=== PATIENT | male | born 1975 | race Hispanic/Latino ===

== ENCOUNTER 2017-04-25 16:01 | Emergency (ER) | payer OTHER ==
[~2017-04-25 16:01] MED LIST: ABAC1TAB15 PO; ESOM40CA54 PO; FENO145T37 PO; FENT25PAT TD; FLUO40CA7 PO; FURO20TA4 PO; INSLAN SQ; LORA1TAB3 PO; METO-408 PO; MORP10SO3 PO; PREG150C PO; PROM25TA7 PO; ROSU20TA PO; TEMA30CA PO; VALS320T15 PO; [UNRECOGNIZED DRUG - CODE] PO
[2017-04-25] MEDS ORDERED: ACETAMINOPHEN EXTRA STRENGTH 500 MG TABLET ONE (16:30)
== END 2017-04-25 17:43 | disposition home or self-care (01) ==
LOC: EDH 16:01
DX: S16.1XXA Strain of muscle, fascia and tendon at neck level, initial encounter (principal); E11.40 Type 2 diabetes mellitus with diabetic neuropathy, unspecified; E78.5 Hyperlipidemia, unspecified; Z91.018 Allergy to other foods; Z88.8 Allergy status to other drugs, medicaments and biological substances; Z21 Asymptomatic human immunodeficiency virus [HIV] infection status; Z72.0 Tobacco use; W01.0XXA Fall on same level from slipping, tripping and stumbling without subsequent striking against object, initial encounter; Y93.89 Activity, other specified; Y92.89 Other specified places as the place of occurrence of the external cause; Y99.8 Other external cause status
CPT/HCPCS: 72040

== ENCOUNTER 2017-05-02 20:31 | Emergency (ER) | payer OTHER ==
[2017-05-02] MEDS ORDERED: ASPIRIN 325 MG TABLET ONE (21:13)
[2017-05-02 21:21] LABS: BASOPHILS % (AUTO) 0.4 % (0.0-5.0); EOSINOPHILS % (AUTO) 0.3 % (0.0-8.0); LYMPHOCYTES % (AUTO) 22.7 % (21.0-51.0); MEAN CORPUSCULAR HGB CONC 33.9 g/dL (32.0-36.0); MEAN CORPUSCULAR VOLUME 79.7 fL (79-99); MONOCYTES % (AUTO) 8.4 % (3.0-13.0); NEUTROPHILS % (AUTO) 68.2 % (40.0-77.0); PLATELET COUNT (AUTO) 383 K/uL (130-400); RED BLOOD CELL COUNT(AUTO) 3.89 MIL/uL (4.50-6.20); RED CELL DISTRIBUTION WIDTH 13.9 % (11.0-15.5); WHITE BLOOD COUNT (AUTO) 7.6 K/uL (4.8-10.8)
[2017-05-02 21:32] LABS: INR 1.01 (0.85-1.15); PARTIAL THROMBOPLASTIN TIME 26.1 SEC (26.3-35.5); PROTHROMBIN TIME 10.6 SEC (9.6-11.6)
[2017-05-02 21:33] LABS: CREATININE 1.2 mg/dL (0.5-1.5)
[2017-05-02 21:46] LABS: B-TYPE NATRIURETIC PEPTIDE 9 pg/mL (0-100)
[2017-05-02 21:50] LABS: APPEARANCE,URINE Clear (CLEAR); BILIRUBIN,URINE Negative (NEGATIVE); COLOR,URINE Yellow (YELLOW); GLUCOSE, URINE (UA) >=1000 mg/dL (NEGATIVE); KETONES,URINE Negative (NEGATIVE); LEUKOCYTE ESTERASE ,URINE Negative (NEGATIVE); NITRATE,URINE Negative (NEGATIVE); OCCULT BLOOD,URINE Negative (NEGATIVE); PROTEIN,URINE Negative (NEGATIVE); UROBILINOGEN,URINE 0.2 mg/dL (0.2-1.0)
[2017-05-02 21:55] LABS: ALBUMIN 3.8 g/dL (3.5-5.0); BILIRUBIN,TOTAL 0.3 mg/dL (0.2-1.0); TOTAL PROTEIN, SERUM 7.8 g/dL (6.0-8.3)
[2017-05-02 21:57] LABS: AMPHET/METH SCREEN,URINE NEGATIVE (NEGATIVE); BARBITURATE SCREEN, URINE NEGATIVE (NEGATIVE); BENZODIAZEPINES SCREEN,URINE NEGATIVE (NEGATIVE); CANNABINOID SCREEN,URINE NEGATIVE (NEGATIVE); COCAINE SCREEN,URINE NEGATIVE (NEGATIVE); OPIATE SCREEN,URINE NEGATIVE (NEGATIVE); PHENCYCLIDINE SCREEN,URINE NEGATIVE (NEGATIVE)
[2017-05-02 22:04] LABS: BACTERIA,URINE Rare /HPF (None Seen); RBC,URINE 0-1 /HPF (0-1); SQUAMOUS EPITHELIAL CELL,UR Rare /HPF (0-2); WBC,URINE 0-1 /HPF (0-1)
[2017-05-02 22:19] LABS: CREATINE KINASE MB 2.7 ng/mL (0.5-3.6)
[2017-05-03] MEDS ORDERED: PREGABALIN 75 MG CAPSULE ONE (00:20)
[2017-05-03] MEDS ORDERED: PREGABALIN 100 MG CAPSULE ONE (00:21)
== END 2017-05-03 00:55 | disposition home or self-care (01) ==
LOC: EDH 20:31
DX: R07.89 Other chest pain (principal); E10.40 Type 1 diabetes mellitus with diabetic neuropathy, unspecified; I10 Essential (primary) hypertension; E78.5 Hyperlipidemia, unspecified; Z88.8 Allergy status to other drugs, medicaments and biological substances; Z88.1 Allergy status to other antibiotic agents; F20.9 Schizophrenia, unspecified; G89.29 Other chronic pain; Z21 Asymptomatic human immunodeficiency virus [HIV] infection status; Z79.4 Long term (current) use of insulin
CPT/HCPCS: 36415; 71045; 80053; 80305; 81001; 82550; 82553; 83874; 83880; 84484; 85025; 85610; 85730; 93005; 94761

== ENCOUNTER 2017-06-14 08:33 | Emergency (ER) | payer OTHER ==
[~2017-06-14 08:33] MED LIST changes: -VALS320T15 PO; +VALS320T16 PO
[2017-06-14] MEDS ORDERED: ACETAMINOPHEN-CODEINE 300/30MG TAB ONE (09:47)
[2017-06-14] MEDS ORDERED: KETOROLAC TROMETHAMINE 60 MG/2 ML VIAL ONE (09:47)
[2017-06-14 09:51] LABS: BILIRUBIN,TOTAL 0.4 mg/dL (0.2-1.0); POTASSIUM 4.4 mmol/L (3.5-5.1); TOTAL PROTEIN, SERUM 7.9 g/dL (6.0-8.3)
[2017-06-14 09:53] LABS: BASOPHILS % (AUTO) 0.4 % (0.0-5.0); EOSINOPHILS % (AUTO) 1.6 % (0.0-8.0); HEMATOCRIT 35.1 % (42-54); LYMPHOCYTES % (AUTO) 19.7 % (21.0-51.0); MEAN CORPUSCULAR HGB CONC 32.2 g/dL (32.0-36.0); MEAN CORPUSCULAR VOLUME 80.7 fL (79-99); NEUTROPHILS % (AUTO) 71.3 % (40.0-77.0); PLATELET COUNT (AUTO) 592 K/uL (130-400); RED BLOOD CELL COUNT(AUTO) 4.35 MIL/uL (4.50-6.20); RED CELL DISTRIBUTION WIDTH 17.2 % (11.0-15.5); WHITE BLOOD COUNT (AUTO) 7.8 K/uL (4.8-10.8)
== END 2017-06-14 10:51 | disposition home or self-care (01) ==
LOC: EDH 08:33
DX: M54.5 Low back pain (principal); G89.29 Other chronic pain; E11.9 Type 2 diabetes mellitus without complications; F31.9 Bipolar disorder, unspecified; E78.5 Hyperlipidemia, unspecified; I10 Essential (primary) hypertension; F20.9 Schizophrenia, unspecified; Z21 Asymptomatic human immunodeficiency virus [HIV] infection status; Z88.8 Allergy status to other drugs, medicaments and biological substances; Z72.0 Tobacco use
CPT/HCPCS: 36415; 80053; 85025; 96372; 99284; J1885

== ENCOUNTER 2018-01-21 14:38 | Emergency (ER) | payer OTHER ==
[~2018-01-21 14:38] MED LIST changes: +ALBU18HF7 IH; +ASPI-555 PO; +CLOP75TA32 PO; -ESOM40CA54 PO; -FENT25PAT TD; +FLUO40CA49 PO; -FLUO40CA7 PO; -FURO20TA4 PO; +GABA-531 PO; +INSU100I3 SQ; +IRON1CAP28 PO; +LEVE500T19 PO; -MORP10SO3 PO; +ONDA4TAB10 PO; -PREG150C PO; -PROM25TA7 PO; +TIZA2CAP9 PO; -VALS320T16 PO; -[UNRECOGNIZED DRUG - CODE] PO
[2018-01-21] MEDS ORDERED: ONDANSETRON ODT 4 MG TAB ONE (15:27)
[2018-01-21] MEDS ORDERED: MORPHINE SULFATE 8 MG/ML VIAL ONE (15:27)
== END 2018-01-21 16:53 | disposition home or self-care (01) ==
LOC: EDH 14:38
DX: E13.40 Other specified diabetes mellitus with diabetic neuropathy, unspecified (principal); E78.5 Hyperlipidemia, unspecified; I10 Essential (primary) hypertension; F20.9 Schizophrenia, unspecified; F31.9 Bipolar disorder, unspecified; G89.29 Other chronic pain; M54.9 Dorsalgia, unspecified; M54.2 Cervicalgia; Z88.8 Allergy status to other drugs, medicaments and biological substances; Z21 Asymptomatic human immunodeficiency virus [HIV] infection status; Z91.018 Allergy to other foods; Z98.890 Other specified postprocedural states; Z90.49 Acquired absence of other specified parts of digestive tract
CPT/HCPCS: 96372; 99283; J2270

== ENCOUNTER 2018-02-11 23:44 | Emergency (ER) | payer OTHER ==
[2018-02-12 01:25] LABS: BASOPHILS % (AUTO) 0.5 % (0.0-5.0); EOSINOPHILS % (AUTO) 1.5 % (0.0-8.0); HEMATOCRIT 40.6 % (42-54); LYMPHOCYTES % (AUTO) 17.4 % (21.0-51.0); MEAN CORPUSCULAR HEMOGLOBIN 29.5 pg (27.0-33.0); MEAN CORPUSCULAR HGB CONC 34.3 g/dL (32.0-36.0); MONOCYTES % (AUTO) 6.9 % (3.0-13.0); NEUTROPHILS % (AUTO) 73.7 % (40.0-77.0); PLATELET COUNT (AUTO) 347 K/uL (130-400); RED BLOOD CELL COUNT(AUTO) 4.73 MIL/uL (4.50-6.20); RED CELL DISTRIBUTION WIDTH 13.6 % (11.0-15.5); WHITE BLOOD COUNT (AUTO) 8.6 K/uL (4.8-10.8)
[2018-02-12 01:35] LABS: CREATININE 0.9 mg/dL (0.5-1.5)
[2018-02-12 01:40] LABS: ALBUMIN 3.6 g/dL (3.5-5.0); BILIRUBIN,DIRECT 0.1 mg/dL (0.0-0.3); BILIRUBIN,TOTAL 0.3 mg/dL (0.2-1.0); TOTAL PROTEIN, SERUM 7.4 g/dL (6.0-8.3)
[2018-02-12] MEDS ORDERED: FAMOTIDINE/PF 20 MG/2 ML VIAL IV ONE (02:27)
[2018-02-12] MEDS ORDERED: METOCLOPRAMIDE 10 MG/2 ML VIAL ONE (02:27)
[2018-02-12 02:35] LABS: APPEARANCE,URINE Clear (CLEAR); BILIRUBIN,URINE Negative (NEGATIVE); COLOR,URINE Yellow (YELLOW); GLUCOSE, URINE (UA) Negative (NEGATIVE); KETONES,URINE Negative (NEGATIVE); LEUKOCYTE ESTERASE ,URINE Negative (NEGATIVE); NITRATE,URINE Negative (NEGATIVE); OCCULT BLOOD,URINE Negative (NEGATIVE); PROTEIN,URINE Negative (NEGATIVE); UROBILINOGEN,URINE 0.2 mg/dL (0.2-1.0)
[2018-02-12] MEDS ORDERED: ONDANSETRON HCL 4 MG/2 ML VIAL ONE (02:39)
[2018-02-12] MEDS ORDERED: ONDANSETRON 4 MG TABLET ONE (02:41)
[2018-02-12] MEDS ORDERED: FAMOTIDINE 20MG TAB 20 MG TAB ONE (02:41)
[2018-02-12 02:45] LABS: AMPHET/METH SCREEN,URINE NEGATIVE (NEGATIVE); BARBITURATE SCREEN, URINE NEGATIVE (NEGATIVE); BENZODIAZEPINES SCREEN,URINE NEGATIVE (NEGATIVE); CANNABINOID SCREEN,URINE NEGATIVE (NEGATIVE); COCAINE SCREEN,URINE NEGATIVE (NEGATIVE); OPIATE SCREEN,URINE NEGATIVE (NEGATIVE); PHENCYCLIDINE SCREEN,URINE NEGATIVE (NEGATIVE)
== END 2018-02-12 04:34 | disposition home or self-care (01) ==
LOC: EDH 23:44
DX: K29.70 Gastritis, unspecified, without bleeding (principal); E11.65 Type 2 diabetes mellitus with hyperglycemia; G89.29 Other chronic pain; M54.9 Dorsalgia, unspecified; M54.2 Cervicalgia; E78.5 Hyperlipidemia, unspecified; E11.40 Type 2 diabetes mellitus with diabetic neuropathy, unspecified; I10 Essential (primary) hypertension; F20.9 Schizophrenia, unspecified; F31.9 Bipolar disorder, unspecified; Z88.8 Allergy status to other drugs, medicaments and biological substances; Z91.018 Allergy to other foods; Z90.49 Acquired absence of other specified parts of digestive tract; Z72.0 Tobacco use; Z21 Asymptomatic human immunodeficiency virus [HIV] infection status
CPT/HCPCS: 36415; 80048; 80076; 80305; 81003; 82550; 82948; 84484; 85025; 87804 ×2; 93005; 96372; 99284; J2405; J2765; J3490; Q0162

== ENCOUNTER 2018-02-13 14:43 | Emergency (ER) | payer OTHER ==
[2018-02-13] MEDS ORDERED: ONDANSETRON HCL 4 MG/2 ML VIAL ONE (15:05)
[2018-02-13] MEDS ORDERED: SODIUM CHLORIDE 0.9% 1000ML 1,000 ML IV ONE (15:06)
[2018-02-13 15:20] LABS: BASOPHILS % (AUTO) 0.7 % (0.0-5.0); EOSINOPHILS % (AUTO) 0.1 % (0.0-8.0); HEMATOCRIT 38.8 % (42-54); LYMPHOCYTES % (AUTO) 10.7 % (21.0-51.0); MEAN CORPUSCULAR HEMOGLOBIN 29.3 pg (27.0-33.0); MEAN CORPUSCULAR HGB CONC 34.3 g/dL (32.0-36.0); MEAN CORPUSCULAR VOLUME 85.5 fL (79-99); MONOCYTES % (AUTO) 5.9 % (3.0-13.0); NEUTROPHILS % (AUTO) 82.6 % (40.0-77.0); PLATELET COUNT (AUTO) 362 K/uL (130-400); RED BLOOD CELL COUNT(AUTO) 4.54 MIL/uL (4.50-6.20); RED CELL DISTRIBUTION WIDTH 13.7 % (11.0-15.5); WHITE BLOOD COUNT (AUTO) 10.2 K/uL (4.8-10.8)
[2018-02-13 15:31] LABS: CREATININE 0.9 mg/dL (0.5-1.5); POTASSIUM 3.7 mmol/L (3.5-5.1)
[2018-02-13 15:35] LABS: ALBUMIN 3.7 g/dL (3.5-5.0); BILIRUBIN,TOTAL 0.4 mg/dL (0.2-1.0); TOTAL PROTEIN, SERUM 7.6 g/dL (6.0-8.3)
[2018-02-13] MEDS ORDERED: PROMETHAZINE HCL 25 MG/ML 1ML AMPULE IM ONE (16:03)
[2018-02-13 16:06] LABS: AMYLASE 49 U/L (25-115); LIPASE 57 U/L (114-286)
[2018-02-13 16:38] LABS: OCCULT BLOOD,GASTRIC FLUID POSITIVE (NEGATIVE)
[2018-02-13 18:56] LABS: AMPHET/METH SCREEN,URINE NEGATIVE (NEGATIVE); BARBITURATE SCREEN, URINE NEGATIVE (NEGATIVE); BENZODIAZEPINES SCREEN,URINE POSITIVE (NEGATIVE); CANNABINOID SCREEN,URINE NEGATIVE (NEGATIVE); COCAINE SCREEN,URINE NEGATIVE (NEGATIVE); OPIATE SCREEN,URINE NEGATIVE (NEGATIVE); PHENCYCLIDINE SCREEN,URINE NEGATIVE (NEGATIVE)
[2018-02-13] MEDS ORDERED: PREGABALIN 25 MG CAP ONE (19:45)
== END 2018-02-13 22:07 | disposition home or self-care (01) ==
LOC: EDH 14:43
DX: K29.00 Acute gastritis without bleeding (principal); E78.5 Hyperlipidemia, unspecified; I10 Essential (primary) hypertension; F31.9 Bipolar disorder, unspecified; F20.9 Schizophrenia, unspecified; E11.40 Type 2 diabetes mellitus with diabetic neuropathy, unspecified; G89.29 Other chronic pain; M54.2 Cervicalgia; M54.9 Dorsalgia, unspecified; Z88.8 Allergy status to other drugs, medicaments and biological substances; Z91.018 Allergy to other foods; Z21 Asymptomatic human immunodeficiency virus [HIV] infection status; Z87.891 Personal history of nicotine dependence
CPT/HCPCS: 36415; 80053; 80305; 82150; 82271 ×2; 83690; 85025; 93005; 96361; 96372; 96374; 96375; 99284; J2405; J2550; J7030

== ENCOUNTER 2018-10-25 03:33 | Inpatient (IN) | payer OTHER | END 2018-10-29 16:14 | disposition home or self-care (01) | LOC: EDH 03:33 → 2AH 10-26 10:04 → EDHIP 05:15 | DX: B20 Human immunodeficiency virus [HIV] disease (principal); E10.10 Type 1 diabetes mellitus with ketoacidosis without coma; K92.0 Hematemesis; D62 Acute posthemorrhagic anemia; K27.9 Peptic ulcer, site unspecified, unspecified as acute or chronic, without hemorrhage or perforation; D50.0 Iron deficiency anemia secondary to blood loss (chronic); E10.40 Type 1 diabetes mellitus with diabetic neuropathy, unspecified; E10.51 Type 1 diabetes mellitus with diabetic peripheral angiopathy without gangrene ==

== ENCOUNTER 2018-11-12 04:04 | Inpatient (IN) | payer OTHER ==
[~2018-11-12] VITALS: Ht 157.5 cm; Wt 66.7 kg
[2018-11-12] VITALS (8 sets, daily range): BP systolic 122–157; BP diastolic 71–82
[~2018-11-12 04:04] MED LIST changes: +ESOM40CA54 PO; -FLUO40CA49 PO; -GABA-531 PO; -INSU100I3 SQ; -IRON1CAP28 PO; +LEVE-43 PO; -LEVE500T19 PO; +PREG150C46 PO; -ROSU20TA PO; +ROSU20TA23 PO; +SERT100T12 PO; -TEMA30CA PO; -TIZA2CAP9 PO
[2018-11-12] MEDS ORDERED: FAMOTIDINE/PF 20 MG/2 ML VIAL IV ONE (04:48)
[2018-11-12 04:49] LABS: ABG OXYGEN SATURATION 86.3 % (95.0-99.0); BASE EXCESS,VENOUS BLOOD GAS -6.3 (-2.0-3.0); PCO2,VENOUS BLOOD GAS 25 (35-48)
[2018-11-12] MEDS ORDERED: ONDANSETRON HCL 4 MG/2 ML VIAL ONE (04:49)
[2018-11-12] MEDS ORDERED: SODIUM CHLORIDE 0.9% 1000ML 2,000 ML IV ONE (04:51)
[2018-11-12 04:59] LABS: BASOPHILS % (AUTO) 0.6 % (0.0-5.0); EOSINOPHILS % (AUTO) 0.1 % (0.0-8.0); HEMATOCRIT 40.9 % (42-54); LYMPHOCYTES % (AUTO) 14.4 % (21.0-51.0); MEAN CORPUSCULAR HGB CONC 33.5 g/dL (32.0-36.0); MEAN CORPUSCULAR VOLUME 86.7 fL (79-99); MONOCYTES % (AUTO) 9.5 % (3.0-13.0); NEUTROPHILS % (AUTO) 75.4 % (40.0-77.0); NUCLEATED RED BLOOD CELLS 0.1 % (0.0-0.19); PLATELET COUNT (AUTO) 430 K/uL (130-400); RED BLOOD CELL COUNT(AUTO) 4.72 MIL/uL (4.50-6.20); RED CELL DISTRIBUTION WIDTH 13.3 % (11.0-15.5); WHITE BLOOD COUNT (AUTO) 8.4 K/uL (4.8-10.8)
[2018-11-12 05:12] LABS: INR 0.98 (0.85-1.15); PARTIAL THROMBOPLASTIN TIME 26.2 SEC (26.3-35.5); PROTHROMBIN TIME 10.3 SEC (9.6-11.6)
[2018-11-12 05:25] LABS: CREATINE KINASE, TOTAL 181 U/L (21-232); MYOGLOBIN 48 ng/mL (10-92); TROPONIN I < 0.04 ng/mL (0.00-0.06)
[2018-11-12 05:59] LABS: APPEARANCE,URINE Clear (CLEAR); BILIRUBIN,URINE Negative (NEGATIVE); COLOR,URINE Yellow (YELLOW); GLUCOSE, URINE (UA) >=1000 mg/dL (NEGATIVE); KETONES,URINE 40 mg/dL (NEGATIVE); LEUKOCYTE ESTERASE ,URINE Negative (NEGATIVE); NITRATE,URINE Negative (NEGATIVE); OCCULT BLOOD,URINE Negative (NEGATIVE); PROTEIN,URINE Negative (NEGATIVE); UROBILINOGEN,URINE 0.2 mg/dL (0.2-1.0)
[2018-11-12] MEDS ORDERED: INSULIN HUMULIN R 100 UNIT/ML 3ML ONE (06:01)
[2018-11-12 06:02] LABS: ALBUMIN 3.9 g/dL (3.5-5.0); BILIRUBIN,TOTAL 0.7 mg/dL (0.2-1.0); CREATININE 1.3 mg/dL (0.5-1.5); POTASSIUM 4.4 mmol/L (3.5-5.1); TOTAL PROTEIN, SERUM 7.7 g/dL (6.0-8.3)
[2018-11-12 06:08] LABS: BACTERIA,URINE Few /HPF (None Seen); RBC,URINE 0-1 /HPF (0-1); WBC,URINE 0-1 /HPF (0-1)
[2018-11-12] MEDS ORDERED: ACETAMINOPHEN EXTRA STRENGTH 500 MG TABLET ONE (06:35)
[2018-11-12 07:53] LABS: CREATININE 1.1 mg/dL (0.5-1.5); POTASSIUM 4.3 mmol/L (3.5-5.1)
[2018-11-12] MEDS ORDERED: ONDANSETRON HCL 4 MG/2 ML VIAL IVP PRN ×2 (08:15→16:30)
[2018-11-12] MEDS ORDERED: DEXTROSE 50%-WATER 50 ML DISP.SYRIN IV PRN (08:15)
[2018-11-12] MEDS ORDERED: SODIUM CHLORIDE 0.9% 1000ML 1,000 ML IV SCH (08:15)
[2018-11-12] MEDS ORDERED: GLUCAGON 1MG KIT 1 MG ML IM PRN (08:15)
--- NOTE | 2018-11-12 09:05 | NUR ---
REPORT RECEIVED FROM LAURE BARGER (ER). PATIENT ARRIVED VIA WHEELCHAIR TO ROOM 308. PATIENT ADMITTED UNDER DR. DUDLEY'S SERVICES FOR UNCONTROLLED HYPERGLYCEMIA. NO CONSULTS. PATIENT STABLE AT THIS TIME.
[2018-11-12] MEDS ORDERED: ALBUTEROL SULFATE 0.083% 2.5 MG/3 ML INH IH PRN (11:00)
[2018-11-12] MEDS: INSULIN R PO SS2 SQ SCH ×3 (13:12→21:00)
[2018-11-12] MEDS: KETOROLAC TROMETHAMINE 30MG/ML IM PRN (14:48)
--- NOTE | 2018-11-12 15:00 | NUR ---
INITIAL MET W PATIENT ALONE AAOX3, LIVES WITH MOM, WHO AT THIS TIME IS ALSO IN THE HOSPITAL PT WILL ARRANGE TRANSPORT AT DISCHARGE. HOME SAFE AND ACCESSIBLE WALKS Kendra LIU, DRIVES, HAS HIV, STATES IS COMPLIANT WITH MEDS, DOES NOT HAVE PROVIDER ; DC PLAN IS AND ALWAYS HAS BEEN HOME Addendum: 11/12/18 at 1833 by ROXY TSANG RN Amended: Links added.
[2018-11-12] MEDS ORDERED: ACETAMINOPHEN 325 MG TAB PO PRN (16:30)
[2018-11-12] MEDS ORDERED: DOCUSATE SODIUM 100 MG CAP PO PRN (16:30)
[2018-11-12] MEDS ORDERED: LACTULOSE 20 GM/30 ML UDCUP PO PRN (16:30)
[2018-11-12] MEDS ORDERED: MAGNESIUM 2GM PREMIX 50ML 50 ML IV PRN (16:30)
[2018-11-12] MEDS ORDERED: HYDRALAZINE HCL 20 MG/ML VIAL IV PRN (16:30)
[2018-11-12] MEDS ORDERED: POTASSIUM CHLORIDE 20MEQ/100ML 100 ML IV PRN (16:30)
[2018-11-12] MEDS ORDERED: IPRATROPIUM/ALBUTEROL SULFATE 3 ML SOLUTION IH PRN (16:30)
[2018-11-12 17:00] LABS: MAGNESIUM 1.9 mg/dL (1.80-2.40); PHOSPHORUS 2.7 mg/dL (2.5-4.9); POTASSIUM 4.3 mmol/L (3.5-5.1)
--- NOTE | 2018-11-12 18:03 | NUR ---
PATIENT ARRIVED TO ROOM 215 VIA W/C, AAOX4. NO ACUTE DISTRESS NOTED. PT TRANSFERRED TO ICU FOR DKA, INSULIN DRIP PROTOCOL. PT ORIENTED TO ROOM AND ENVIRONMENT. BENCHMARK TO BE NOTIFIED OF ARRIVAL TO FLOOR. LAST GLUCOSE 380MG/DL, COVERED PER INSULIN SLIDING SCALE #3. TELEMETRY SR 85.
[2018-11-12] MEDS: SODIUM CHLORIDE 0.9% 1000ML 1,000 ML IV SCH (18:28)
[2018-11-12] MEDS: MORPHINE SULFATE 2 MG/ML 1ML SYG IVP PRN (18:40)
--- NOTE | 2018-11-12 20:00 | NUR ---
MD Visit MD Fan saw patient in room. Orders received and carried out.
[2018-11-12 20:08] LABS: POTASSIUM 4.3 mmol/L (3.5-5.1)
[2018-11-12] MEDS ORDERED: INSULIN REGULAR, HUMAN 3ML 100 UNIT in SODIUM CHLORIDE 0.9% 99 ML IV PRN ×2 (20:30)
[2018-11-12] MEDS: ALPRAZOLAM 1 MG TAB PO SCH (21:12)
[2018-11-12] MEDS ORDERED: TRAZ-185 PO (22:53)
[2018-11-12] MEDS ORDERED: LORA2TAB2 PO (22:53)
[2018-11-12] MEDS ORDERED: FLUO40CA49 PO (22:53)
[2018-11-12] MEDS ORDERED: LEVE500S7 PO (22:53)
[2018-11-12] MEDS ORDERED: METO-408 PO (22:53)
[2018-11-12] MEDS ORDERED: SUMA25TA9 PO (22:53)
[2018-11-12] MEDS ORDERED: TIZA2TAB5 PO (22:53)
[2018-11-12] MEDS ORDERED: TRAZ-187 PO (22:53)
[2018-11-12] MEDS ORDERED: ROSU20TA31 PO (22:53)
[2018-11-12] MEDS ORDERED: ESOM40CA54 PO (22:53)
[2018-11-13] VITALS (14 sets, daily range): BP systolic 113–148; BP diastolic 7–92
[2018-11-13] MEDS: SODIUM CHLORIDE 0.9% 1000ML 1,000 ML IV SCH ×2 (00:08→08:39)
[2018-11-13 03:57] LABS: HEMATOCRIT 33.8 % (42-54); MEAN CORPUSCULAR HEMOGLOBIN 30.1 pg (27.0-33.0); MEAN CORPUSCULAR HGB CONC 35.5 g/dL (32.0-36.0); PLATELET COUNT (AUTO) 360 K/uL (130-400); RED BLOOD CELL COUNT(AUTO) 3.97 MIL/uL (4.50-6.20); RED CELL DISTRIBUTION WIDTH 13.7 % (11.0-15.5)
[2018-11-13 04:01] LABS: HEMOGLOBIN A1C 9.8 % (4.0-6.0)
[2018-11-13 04:08] LABS: ABG BASE EXCESS 0.8 mmol/L (-2.0-3.0); ABG HCO3 25.8 mmol/L (21.0-28.0); ABG OXYGEN SATURATION 95.6 % (95.0-99.0); ABG PCO2 43 mmHg (35-48)
[2018-11-13] MEDS: INSULIN R PO SS2 SQ SCH ×4 (06:04→20:55)
--- NOTE | 2018-11-13 08:00 | NUR ---
PT RESTING QUIETLY IN BED . NO ACUTE DISTRESS NOTED
[2018-11-13] MEDS: ALPRAZOLAM 1 MG TAB PO SCH ×3 (08:39→20:59)
--- NOTE | 2018-11-13 08:49 | NUR ---
DR DUDLEY MADE BEDSIDE ROUNDS AND WAS UPDATED ON STATUS. DOWNGRADED TO MEDICAL FLOOR STATUS
[2018-11-13] MEDS: INSULIN GLARGINE 100 UNITS/ML 10 ML VIAL SQ SCH ×2 (09:15→20:54)
--- NOTE | 2018-11-13 13:22 | NUR ---
PT MOSTLY SLEEPING TODAY. WHEN OFFERED HIS LUNCH HE DECLINED. WHEN OFFERED A SHOWER HE DECLINED. SEEMS BOTHERED WHEN I GO INTO HIS ROOM TO WAKE HIM FOR ASSESSMENTS. AVNI DE LUNA SEARCH ENGINE MARKETING STRATEGIST NOTIFIED OF GLUCOSE OF 393. NO NEW ORDERS.
--- NOTE | 2018-11-13 13:50 | NUR ---
I ONCE AGAIN ENTERED PT ROOM . I WOKE HIM UP AND ASKED WHY HE IS SLEEPING SO MUCH AND HE REPLIED "DON'T WORRY. I HAVE NOT SLEPT ALL DAY" HE WAS INFORMED THAT XANAX WAS DUE AND I WAS CONCERNED THAT HE WAS TO DROWSY. REFUSED XANAX AT PRESENT TIME AND WILL TAKE IT LATER TODAY
--- NOTE | 2018-11-13 14:05 | NUR ---
PT NOW AWAKE AND TAKES HIS XANAX. I SPOT CHECKED HIS GLUCOSE =240. SPILLED HIS LUNCH TRAY ON FLOOR. CALLED [employer] FOR SANDWICH TRAY
--- NOTE | 2018-11-13 14:08 | NUR ---
PT UP TO CHAIR. STILL REFUSING SHOWER
--- NOTE | 2018-11-13 14:30 | NUR ---
DIABETES ED- I ASKED PATIENT IF HE WAS USING HIS INSULIN OR IF HE WAS HAVING TROUBLE BUYING IT. HE SAID NO TO BOTH. HE THEN DISCLOSED THAT HE JUST DIDN'T TAKE IT BECAUSE HE FELT "FINE". HE HAS BEEN DIABETIC FOR SEVERAL YEARS. I LET HIM KNOW THE IMPORTANCE OF COMPLIANCE AND THAT HE WILL HAVE COMPLICATIONS IF HE CONTINUES TO NOT FOLLOW HIS PROVIDERS MED/TX ORDERS. HE ALSO DOES NOT CHECK HIS GLUCOSE AT HOME AND ADMITS THAT HE HAS A GLUCOMETER . I ONCE AGAIN TOLD HIM THE IMPORTANCE OF FOLLOWING DIET AND MED REGIMEN
--- NOTE | 2018-11-13 19:03 | NUR ---
HAND OFF REPORT GIVEN TO DIPIKA KELSEY
--- NOTE | 2018-11-13 19:04 | NUR ---
HAND OFF REPORT GIVEN TO DIPIKA KELSEY
[2018-11-13] MEDS: MORPHINE SULFATE 2 MG/ML 1ML SYG IVP PRN (19:09)
--- NOTE | 2018-11-13 19:31 | NUR ---
Pt. was medicated with Morphine 2mg IV for c/o back pain ,pt is pending to be transfered to room 402 .Report already given to nurse Crain,using SBAR all questions answered.Pt. condition is stable, pt is alert and coherent no s/s of any respiratory distress.
--- NOTE | 2018-11-13 19:50 | NUR ---
PT TRANSFERRED FROM ROOM 215. PT AWAKE, ALERT AND RESPONSIVE. NO C/O PAIN OR DISCOMFORT AT THIS TIME. CALL JOSHUA WITHIN REACH, BED IN LOWEST POSITION. Addendum: 11/13/18 at 2039 by NABILA RUSH RN Amended: Links added.
[2018-11-14] MEDS: KETOROLAC TROMETHAMINE 30MG/ML IM PRN ×2 (02:18→11:17)
[2018-11-14 03:30] VITALS: BP 117/76
[2018-11-14 04:24] LABS: HEMATOCRIT 34.6 % (42-54); MEAN CORPUSCULAR HEMOGLOBIN 29.6 pg (27.0-33.0); MEAN CORPUSCULAR HGB CONC 34.7 g/dL (32.0-36.0); MEAN CORPUSCULAR VOLUME 85.4 fL (79-99); PLATELET COUNT (AUTO) 350 K/uL (130-400); RED BLOOD CELL COUNT(AUTO) 4.05 MIL/uL (4.50-6.20); RED CELL DISTRIBUTION WIDTH 13.6 % (11.0-15.5); WHITE BLOOD COUNT (AUTO) 5.8 K/uL (4.8-10.8)
[2018-11-14 04:32] LABS: CREATININE 0.8 mg/dL (0.5-1.5); POTASSIUM 3.8 mmol/L (3.5-5.1)
[2018-11-14] MEDS: INSULIN R PO SS2 SQ SCH ×2 (07:06→12:50)
[2018-11-14] MEDS: INSULIN GLARGINE 100 UNITS/ML 10 ML VIAL SQ SCH (07:07)
[2018-11-14 08:00] VITALS: BP 134/81
[2018-11-14] MEDS: ALPRAZOLAM 1 MG TAB PO SCH (08:41)
[2018-11-14] MEDS: MORPHINE SULFATE 2 MG/ML 1ML SYG IVP PRN (08:41)
--- NOTE | 2018-11-14 11:10 | NUR ---
DISCHARGE DISCHARGE TEACHING DONE WITH PATIENT USING TEACHBACK METHOD, VERBALIZED UNDERSTANDING. NO NOTED SOB OR DISTRESS. PER DR. DUDLEY, WILL REFILL PATIENTS PRESCRIPTIONS WITH [facility]. NO NEW PRESCRIPTIONS. IV REMOVED, CATH TIP INTACT. PER MD, PATIENT IS TO SEE DOCTOR AT HIS OFFICE TOMORROW. PER PATIENT, WILL NOT BE ABLE TO ATTEND BUT WILL CALL MD OFFICE TO SET HIM KNOW. LATE DISCHARGE DUE TO PENDING RIDE TO TRANSFER OUT VIA PRIVATE VEHICLE.
[2018-11-14 11:44] VITALS: BP 126/77
== END 2018-11-14 14:30 | disposition home or self-care (01) | DRG 638 ==
LOC: EDH 04:04 → EDHIP 07:45 → 3BH 08:14 → 2CH 18:10 → 4AH 11-13 19:34
PROVIDERS: ADMIT Internal Medicine Hematology & Oncology; ATTEND Internal Medicine Hematology & Oncology
DX: E10.10 Type 1 diabetes mellitus with ketoacidosis without coma (principal); B20 Human immunodeficiency virus [HIV] disease; E10.40 Type 1 diabetes mellitus with diabetic neuropathy, unspecified; E78.5 Hyperlipidemia, unspecified; E86.0 Dehydration; F20.9 Schizophrenia, unspecified; F31.9 Bipolar disorder, unspecified; F41.1 Generalized anxiety disorder; G40.909 Epilepsy, unspecified, not intractable, without status epilepticus; G89.29 Other chronic pain; I10 Essential (primary) hypertension; Z76.5 Malingerer [conscious simulation]; Z79.4 Long term (current) use of insulin; Z91.19 Patient's noncompliance with other medical treatment and regimen; Z86.73 Personal history of transient ischemic attack (TIA), and cerebral infarction without residual deficits
CPT/HCPCS: 36415; 36600; 71045; 80048; 80053; 81001; 82010; 82435; 82550; 82803; 82947; 82948; 83036; 83605; 83690; 83735; 83874; 84100; 84132; 84295; 84484; 85018; 85025; 85027; 85610; 85730; 87040; 87088; 93005; 94640; 94664; G0378; J1815; J1885; J2405; J3475; J3490; J7030

== ENCOUNTER 2018-11-19 12:52 | Emergency (ER) | payer OTHER ==
[~2018-11-19 12:52] MED LIST changes: +FLUO40CA49 PO; -LORA1TAB3 PO; +LORA2TAB2 PO; -ROSU20TA23 PO; +ROSU20TA31 PO; -SERT100T12 PO; +SUMA25TA9 PO; +TIZA2TAB5 PO; +TRAZ-185 PO
[2018-11-19] MEDS ORDERED: KETOROLAC TROMETHAMINE 30MG/ML ONE (13:36)
[2018-11-19] MEDS ORDERED: DEXAMETHASONE SOD PHOSPHATE 10MG/ML 1ML VIAL ONE (13:36)
== END 2018-11-19 13:57 | disposition home or self-care (01) ==
LOC: EDH 12:52
DX: G89.29 Other chronic pain (principal); M54.5 Low back pain; F31.9 Bipolar disorder, unspecified; E78.5 Hyperlipidemia, unspecified; E11.40 Type 2 diabetes mellitus with diabetic neuropathy, unspecified; I10 Essential (primary) hypertension; F20.9 Schizophrenia, unspecified; Z88.8 Allergy status to other drugs, medicaments and biological substances; Z91.018 Allergy to other foods; Z87.891 Personal history of nicotine dependence
CPT/HCPCS: 96372 ×2; 99283; J1100; J1885

== ENCOUNTER 2018-12-05 00:49 | Emergency (ER) | payer OTHER ==
[2018-12-05 01:20] LABS: APPEARANCE,URINE Clear (CLEAR); BILIRUBIN,URINE Negative (NEGATIVE); COLOR,URINE Yellow (YELLOW); GLUCOSE, URINE (UA) >=1000 mg/dL (NEGATIVE); KETONES,URINE Negative (NEGATIVE); LEUKOCYTE ESTERASE ,URINE Negative (NEGATIVE); NITRATE,URINE Negative (NEGATIVE); OCCULT BLOOD,URINE Negative (NEGATIVE); PH,URINE 6.5 (5.0-8.0); PROTEIN,URINE Negative (NEGATIVE)
[2018-12-05 01:23] LABS: BASOPHILS % (AUTO) 0.4 % (0.0-5.0); EOSINOPHILS % (AUTO) 2.1 % (0.0-8.0); MEAN CORPUSCULAR HEMOGLOBIN 28.8 pg (27.0-33.0); MEAN CORPUSCULAR HGB CONC 33.9 g/dL (32.0-36.0); MONOCYTES % (AUTO) 7.3 % (3.0-13.0); NEUTROPHILS % (AUTO) 60.2 % (40.0-77.0); NUCLEATED RED BLOOD CELLS 0.1 % (0.0-0.19); PLATELET COUNT (AUTO) 334 K/uL (130-400); RED BLOOD CELL COUNT(AUTO) 3.76 MIL/uL (4.50-6.20); RED CELL DISTRIBUTION WIDTH 13.5 % (11.0-15.5); WHITE BLOOD COUNT (AUTO) 7.9 K/uL (4.8-10.8)
[2018-12-05 01:28] LABS: CARBON DIOXIDE 26 mmol/L (21-32); CHLORIDE 103 mmol/L (101-111); GLOMERULAR FILTR. RATE CALC 86 mL/min (>60); GLUCOSE,RANDOM 332 mg/dL (70-105); POTASSIUM 4.3 mmol/L (3.5-5.1); SODIUM SERUM 135 mmol/L (136-145); UREA NITROGEN, BLOOD 21 mg/dL (7-18)
[2018-12-05 01:30] LABS: AMPHET/METH SCREEN,URINE NEGATIVE (NEGATIVE); BARBITURATE SCREEN, URINE NEGATIVE (NEGATIVE); BENZODIAZEPINES SCREEN,URINE NEGATIVE (NEGATIVE); CANNABINOID SCREEN,URINE NEGATIVE (NEGATIVE); COCAINE SCREEN,URINE NEGATIVE (NEGATIVE); OPIATE SCREEN,URINE NEGATIVE (NEGATIVE); PHENCYCLIDINE SCREEN,URINE NEGATIVE (NEGATIVE)
[2018-12-05 01:32] LABS: BACTERIA,URINE Rare /HPF (None Seen); RBC,URINE 0-1 /HPF (0-1); WBC,URINE 0-1 /HPF (0-1)
[2018-12-05 01:33] LABS: ACETAMINOPHEN < 1 mcg/mL (10-29); ALANINE AMINOTRANSFERASE 27 U/L (12-78); ALBUMIN 3.1 g/dL (3.5-5.0); ALCOHOL, BLOOD < 3 mg/dL (0-10); ASPARTATE AMINOTRANSFERASE 33 U/L (10-37); BILIRUBIN,TOTAL 0.2 mg/dL (0.2-1.0); SALICYLATE 2.9 mg/dL (2.8-20.0); TOTAL PROTEIN, SERUM 6.7 g/dL (6.0-8.3)
[2018-12-05] MEDS ORDERED: INSULIN HUMULIN R 100 UNIT/ML 3ML ONE (01:47)
== END 2018-12-05 07:16 | disposition home or self-care (01) ==
LOC: EDH 00:49
DX: F43.22 Adjustment disorder with anxiety (principal); E11.65 Type 2 diabetes mellitus with hyperglycemia; E86.0 Dehydration; R51 Headache; F31.9 Bipolar disorder, unspecified; E78.5 Hyperlipidemia, unspecified; I10 Essential (primary) hypertension; F20.9 Schizophrenia, unspecified; Z79.4 Long term (current) use of insulin; Z21 Asymptomatic human immunodeficiency virus [HIV] infection status; Z72.0 Tobacco use; Z88.8 Allergy status to other drugs, medicaments and biological substances; Z91.018 Allergy to other foods
CPT/HCPCS: 36415; 80053; 80305; 81001; 82948; 85025; 93005; 96372; 99285; G0480 ×2; G0481; J1815

== ENCOUNTER 2018-12-09 01:59 | Emergency (ER) | payer OTHER | END 2018-12-09 03:05 | disposition home or self-care (01) | LOC: EDH 01:59 | DX: F41.9 Anxiety disorder, unspecified (principal); I10 Essential (primary) hypertension; E78.5 Hyperlipidemia, unspecified; F20.9 Schizophrenia, unspecified; E11.40 Type 2 diabetes mellitus with diabetic neuropathy, unspecified; G89.29 Other chronic pain; F31.9 Bipolar disorder, unspecified; Z90.49 Acquired absence of other specified parts of digestive tract; Z79.4 Long term (current) use of insulin; Z91.018 Allergy to other foods; Z88.8 Allergy status to other drugs, medicaments and biological substances ==

== ENCOUNTER 2018-12-09 22:38 | Emergency (ER) | payer OTHER ==
[2018-12-09] MEDS ORDERED: ONDANSETRON HCL 4 MG/2 ML VIAL ONE (23:37)
[2018-12-09] MEDS ORDERED: SODIUM CHLORIDE 0.9% 1000ML 1,000 ML IV ONE (23:37)
[2018-12-09] MEDS ORDERED: KETOROLAC TROMETHAMINE 30MG/ML ONE (23:37)
[2018-12-09 23:41] LABS: BASOPHILS % (AUTO) 0.2 % (0.0-5.0); EOSINOPHILS % (AUTO) 1.1 % (0.0-8.0); HEMATOCRIT 32.9 % (42-54); LYMPHOCYTES % (AUTO) 20.1 % (21.0-51.0); MEAN CORPUSCULAR HEMOGLOBIN 28.8 pg (27.0-33.0); MEAN CORPUSCULAR HGB CONC 34.7 g/dL (32.0-36.0); MONOCYTES % (AUTO) 9.6 % (3.0-13.0); PLATELET COUNT (AUTO) 388 K/uL (130-400); RED BLOOD CELL COUNT(AUTO) 3.96 MIL/uL (4.50-6.20); WHITE BLOOD COUNT (AUTO) 7.7 K/uL (4.8-10.8)
[2018-12-09 23:52] LABS: CREATININE 1.5 mg/dL (0.5-1.5); POTASSIUM 3.4 mmol/L (3.5-5.1)
[2018-12-09 23:59] LABS: ALBUMIN 3.5 g/dL (3.5-5.0); BILIRUBIN,TOTAL 0.1 mg/dL (0.2-1.0); TOTAL PROTEIN, SERUM 7.3 g/dL (6.0-8.3)
[2018-12-10 00:10] LABS: APPEARANCE,URINE Clear (CLEAR); BILIRUBIN,URINE Negative (NEGATIVE); COLOR,URINE Dark Yellow (YELLOW); GLUCOSE, URINE (UA) >=1000 mg/dL (NEGATIVE); KETONES,URINE Negative (NEGATIVE); LEUKOCYTE ESTERASE ,URINE Negative (NEGATIVE); NITRATE,URINE Negative (NEGATIVE); OCCULT BLOOD,URINE Negative (NEGATIVE); PROTEIN,URINE POS 2+ mg/dL (NEGATIVE)
[2018-12-10 00:17] LABS: AMPHET/METH SCREEN,URINE NEGATIVE (NEGATIVE); BARBITURATE SCREEN, URINE NEGATIVE (NEGATIVE); BENZODIAZEPINES SCREEN,URINE NEGATIVE (NEGATIVE); CANNABINOID SCREEN,URINE NEGATIVE (NEGATIVE); COCAINE SCREEN,URINE NEGATIVE (NEGATIVE); OPIATE SCREEN,URINE NEGATIVE (NEGATIVE); PHENCYCLIDINE SCREEN,URINE NEGATIVE (NEGATIVE)
[2018-12-10 00:23] LABS: BACTERIA,URINE None Seen /HPF (None Seen); MUCUS,URINE Rare LPF (None Seen); RBC,URINE None Seen /HPF (0-1); SQUAMOUS EPITHELIAL CELL,UR Rare /HPF (0-2); WBC,URINE None Seen /HPF (0-1); YEAST,URINE BUDDING None Seen /HPF (None Seen)
== END 2018-12-10 02:20 | disposition home or self-care (01) ==
LOC: EDH 22:38
DX: R10.9 Unspecified abdominal pain (principal); R06.02 Shortness of breath; R00.2 Palpitations; M54.5 Low back pain; R53.83 Other fatigue; E11.40 Type 2 diabetes mellitus with diabetic neuropathy, unspecified; I10 Essential (primary) hypertension; E78.5 Hyperlipidemia, unspecified; G89.29 Other chronic pain; M54.2 Cervicalgia; Z91.018 Allergy to other foods; Z88.8 Allergy status to other drugs, medicaments and biological substances; Z90.49 Acquired absence of other specified parts of digestive tract; Z98.890 Other specified postprocedural states; Z72.0 Tobacco use
CPT/HCPCS: 36415; 80053; 80305; 81001; 82948 ×2; 85025; 96374; 96375; 99283; J1885; J2405; J7030

== ENCOUNTER 2019-01-04 23:40 | Emergency (ER) | payer OTHER ==
[2019-01-05 01:30] LABS: BASOPHILS % (AUTO) 0.8 % (0.0-5.0); HEMATOCRIT 35.2 % (42-54); LYMPHOCYTES % (AUTO) 32.1 % (21.0-51.0); MEAN CORPUSCULAR HEMOGLOBIN 27.9 pg (27.0-33.0); MEAN CORPUSCULAR HGB CONC 33.2 g/dL (32.0-36.0); MONOCYTES % (AUTO) 8.2 % (3.0-13.0); NEUTROPHILS % (AUTO) 55.9 % (40.0-77.0); PLATELET COUNT (AUTO) 342 K/uL (130-400); RED BLOOD CELL COUNT(AUTO) 4.19 MIL/uL (4.50-6.20); RED CELL DISTRIBUTION WIDTH 14.1 % (11.0-15.5); WHITE BLOOD COUNT (AUTO) 6.9 K/uL (4.8-10.8)
[2019-01-05 01:45] LABS: APPEARANCE,URINE Clear (CLEAR); BILIRUBIN,URINE Negative (NEGATIVE); COLOR,URINE Yellow (YELLOW); GLUCOSE, URINE (UA) >=1000 mg/dL (NEGATIVE); KETONES,URINE Negative (NEGATIVE); LEUKOCYTE ESTERASE ,URINE Negative (NEGATIVE); NITRATE,URINE Negative (NEGATIVE); OCCULT BLOOD,URINE Negative (NEGATIVE); PROTEIN,URINE POS 1+ mg/dL (NEGATIVE); UROBILINOGEN,URINE 0.2 mg/dL (0.2-1.0)
[2019-01-05 01:50] LABS: CARBON DIOXIDE 30 mmol/L (21-32); CHLORIDE 102 mmol/L (101-111); CREATININE 1.1 mg/dL (0.5-1.5); GLOMERULAR FILTR. RATE CALC 77 mL/min (>60); GLUCOSE,RANDOM 258 mg/dL (70-105); POTASSIUM 4.4 mmol/L (3.5-5.1); SODIUM SERUM 137 mmol/L (136-145); UREA NITROGEN, BLOOD 15 mg/dL (7-18)
[2019-01-05 01:55] LABS: ACETAMINOPHEN 2 mcg/mL (10-29); ALANINE AMINOTRANSFERASE 20 U/L (12-78); ALBUMIN 3.6 g/dL (3.5-5.0); ALCOHOL, BLOOD < 3 mg/dL (0-10); ASPARTATE AMINOTRANSFERASE 18 U/L (10-37); BILIRUBIN,TOTAL 0.2 mg/dL (0.2-1.0); SALICYLATE < 2.8 mg/dL (2.8-20.0); TOTAL PROTEIN, SERUM 7.4 g/dL (6.0-8.3)
[2019-01-05 01:59] LABS: BACTERIA,URINE Rare /HPF (None Seen); RBC,URINE 0-1 /HPF (0-1)
[2019-01-05 02:01] LABS: AMPHET/METH SCREEN,URINE NEGATIVE (NEGATIVE); BARBITURATE SCREEN, URINE NEGATIVE (NEGATIVE); BENZODIAZEPINES SCREEN,URINE NEGATIVE (NEGATIVE); CANNABINOID SCREEN,URINE NEGATIVE (NEGATIVE); COCAINE SCREEN,URINE NEGATIVE (NEGATIVE); OPIATE SCREEN,URINE NEGATIVE (NEGATIVE); PHENCYCLIDINE SCREEN,URINE NEGATIVE (NEGATIVE)
== END 2019-01-05 05:30 | disposition home or self-care (01) ==
LOC: EDH 23:40
DX: F43.0 Acute stress reaction (principal); R45.851 Suicidal ideations; E11.65 Type 2 diabetes mellitus with hyperglycemia; F31.9 Bipolar disorder, unspecified; E78.5 Hyperlipidemia, unspecified; I10 Essential (primary) hypertension; E11.40 Type 2 diabetes mellitus with diabetic neuropathy, unspecified; F20.9 Schizophrenia, unspecified; Z79.4 Long term (current) use of insulin; Z91.11 Patient's noncompliance with dietary regimen; Z90.49 Acquired absence of other specified parts of digestive tract; Z96.649 Presence of unspecified artificial hip joint
CPT/HCPCS: 36415; 71046; 80053; 80305; 81001; 82948; 85025; 99285; G0480 ×2; G0481

== ENCOUNTER 2019-01-16 08:57 | Emergency (ER) | payer OTHER ==
[2019-01-16 09:24] LABS: RAPID GROUP A STREP NEGATIVE (NEGATIVE)
[2019-01-16] MEDS ORDERED: IPRATROPIUM/ALBUTEROL SULFATE 3 ML SOLUTION IH ONE ×3 (09:47→12:53)
[2019-01-16 10:19] LABS: BASOPHILS % (AUTO) 0.3 % (0.0-5.0); EOSINOPHILS % (AUTO) 1.4 % (0.0-8.0); HEMATOCRIT 34.5 % (42-54); LYMPHOCYTES % (AUTO) 15.8 % (21.0-51.0); MEAN CORPUSCULAR HEMOGLOBIN 27.7 pg (27.0-33.0); MEAN CORPUSCULAR HGB CONC 33.5 g/dL (32.0-36.0); MEAN CORPUSCULAR VOLUME 82.6 fL (79-99); MONOCYTES % (AUTO) 12.4 % (3.0-13.0); NEUTROPHILS % (AUTO) 70.1 % (40.0-77.0); PLATELET COUNT (AUTO) 302 K/uL (130-400); RED BLOOD CELL COUNT(AUTO) 4.18 MIL/uL (4.50-6.20); WHITE BLOOD COUNT (AUTO) 5.6 K/uL (4.8-10.8)
[2019-01-16 10:37] LABS: CREATININE 1.1 mg/dL (0.5-1.5); POTASSIUM 4.5 mmol/L (3.5-5.1)
[2019-01-16 10:42] LABS: ALBUMIN 3.5 g/dL (3.5-5.0); BILIRUBIN,TOTAL 0.2 mg/dL (0.2-1.0); TOTAL PROTEIN, SERUM 7.5 g/dL (6.0-8.3)
[2019-01-16] MEDS ORDERED: SODIUM CHLORIDE 0.9% 1000ML 1,000 ML IV ONE (11:00)
[2019-01-16 11:05] LABS: APPEARANCE,URINE Clear (CLEAR); BILIRUBIN,URINE Negative (NEGATIVE); COLOR,URINE Yellow (YELLOW); GLUCOSE, URINE (UA) >=1000 mg/dL (NEGATIVE); KETONES,URINE Negative (NEGATIVE); LEUKOCYTE ESTERASE ,URINE Negative (NEGATIVE); NITRATE,URINE Negative (NEGATIVE); OCCULT BLOOD,URINE Negative (NEGATIVE); PROTEIN,URINE POS 1+ mg/dL (NEGATIVE); UROBILINOGEN,URINE 0.2 mg/dL (0.2-1.0)
[2019-01-16 11:12] LABS: BACTERIA,URINE Rare /HPF (None Seen); MUCUS,URINE Rare LPF (None Seen); RBC,URINE None Seen /HPF (0-1); SQUAMOUS EPITHELIAL CELL,UR None Seen /HPF (0-2); WBC,URINE None Seen /HPF (0-1)
[2019-01-16] MEDS ORDERED: ONDANSETRON HCL 4 MG/2 ML VIAL ONE (12:26)
[2019-01-16] MEDS ORDERED: ACETAMINOPHEN 325 MG TAB ONE (12:27)
== END 2019-01-16 14:34 | disposition home or self-care (01) ==
LOC: EDH 08:57
DX: J06.9 Acute upper respiratory infection, unspecified (principal); J45.909 Unspecified asthma, uncomplicated; E11.40 Type 2 diabetes mellitus with diabetic neuropathy, unspecified; F32.9 Major depressive disorder, single episode, unspecified; E78.5 Hyperlipidemia, unspecified; I10 Essential (primary) hypertension; F20.9 Schizophrenia, unspecified; Z91.018 Allergy to other foods; Z90.49 Acquired absence of other specified parts of digestive tract; Z98.890 Other specified postprocedural states; Z87.891 Personal history of nicotine dependence
CPT/HCPCS: 36415; 71045; 80053; 81001; 85025; 87040 ×2; 87804 ×2; 87880; 94640 ×2; 96374; 99284; J2405; J7030

== ENCOUNTER 2019-04-28 22:06 | Emergency (ER) | payer OTHER ==
[~2019-04-28 22:06] MED LIST changes: +FENO145T26 PO; -FENO145T37 PO
[2019-04-28 23:45] LABS: BASOPHILS % (AUTO) 0.1 % (0.0-5.0); EOSINOPHILS % (AUTO) 1.3 % (0.0-8.0); HEMATOCRIT 32.6 % (42-54); LYMPHOCYTES % (AUTO) 25.8 % (21.0-51.0); MEAN CORPUSCULAR HEMOGLOBIN 27.1 pg (27.0-33.0); MEAN CORPUSCULAR HGB CONC 33.4 g/dL (32.0-36.0); MEAN CORPUSCULAR VOLUME 81.1 fL (79-99); MONOCYTES % (AUTO) 8.6 % (3.0-13.0); NEUTROPHILS % (AUTO) 63.3 % (40.0-77.0); PLATELET COUNT (AUTO) 325 K/uL (130-400); RED BLOOD CELL COUNT(AUTO) 4.02 MIL/uL (4.50-6.20); WHITE BLOOD COUNT (AUTO) 7.8 K/uL (4.8-10.8)
[2019-04-29] MEDS ORDERED: PROCHLORPERAZINE EDISYLATE 10 MG/2 ML VIAL ONE (00:06)
[2019-04-29] MEDS ORDERED: LORAZEPAM 2 MG/ML 1 ML VIAL ONE (00:07)
[2019-04-29] MEDS ORDERED: SODIUM CHLORIDE 0.9% 500ML 500 ML IV ONE (00:07)
[2019-04-29 00:08] LABS: CREATININE 1.6 mg/dL (0.5-1.5); POTASSIUM 3.9 mmol/L (3.5-5.1)
[2019-04-29 00:10] LABS: INR 0.96 (0.85-1.15); PARTIAL THROMBOPLASTIN TIME 24.5 SEC (26.3-35.5); PROTHROMBIN TIME 10.4 SEC (9.6-11.6)
[2019-04-29 00:14] LABS: ALBUMIN 3.4 g/dL (3.5-5.0); BILIRUBIN,TOTAL 0.2 mg/dL (0.2-1.0)
[2019-04-29 00:36] LABS: APPEARANCE,URINE Clear (CLEAR); BILIRUBIN,URINE Negative (NEGATIVE); COLOR,URINE Yellow (YELLOW); GLUCOSE, URINE (UA) >=1000 mg/dL (NEGATIVE); KETONES,URINE Trace mg/dL (NEGATIVE); LEUKOCYTE ESTERASE ,URINE Negative (NEGATIVE); NITRATE,URINE Negative (NEGATIVE); OCCULT BLOOD,URINE Negative (NEGATIVE); PH,URINE 5.5 (5.0-8.0); PROTEIN,URINE POS 1+ mg/dL (NEGATIVE); UROBILINOGEN,URINE 0.2 mg/dL (0.2-1.0)
[2019-04-29 00:44] LABS: AMPHET/METH SCREEN,URINE NEGATIVE (NEGATIVE); BARBITURATE SCREEN, URINE NEGATIVE (NEGATIVE); BENZODIAZEPINES SCREEN,URINE NEGATIVE (NEGATIVE); CANNABINOID SCREEN,URINE NEGATIVE (NEGATIVE); COCAINE SCREEN,URINE NEGATIVE (NEGATIVE); OPIATE SCREEN,URINE NEGATIVE (NEGATIVE); PHENCYCLIDINE SCREEN,URINE NEGATIVE (NEGATIVE)
[2019-04-29 01:07] LABS: BACTERIA,URINE Rare /HPF (None Seen); RBC,URINE None Seen /HPF (0-1); SQUAMOUS EPITHELIAL CELL,UR Few /HPF (0-2); WBC,URINE None Seen /HPF (0-1)
[2019-04-29] MEDS ORDERED: DEXTROSE 50%-WATER 50 ML DISP.SYRIN IV ONE (04:05)
== END 2019-04-29 04:40 | disposition home or self-care (01) ==
LOC: EDH 22:06
DX: G43.809 Other migraine, not intractable, without status migrainosus (principal); E11.9 Type 2 diabetes mellitus without complications; F31.9 Bipolar disorder, unspecified; G89.29 Other chronic pain; E78.5 Hyperlipidemia, unspecified; I10 Essential (primary) hypertension; Z72.0 Tobacco use; Z91.018 Allergy to other foods; Z88.8 Allergy status to other drugs, medicaments and biological substances
CPT/HCPCS: 36415; 70450; 71045; 80053; 80305; 81001; 82550; 82948 ×2; 83721; 84484; 85025; 85610; 85730; 93005; 96374; 96375; 99284; J0780; J2060; J7040; J7070